=== PATIENT | female | born 1975 | race African-American/Black ===

== ENCOUNTER 2022-03-07 19:25 | Emergency (ER) | payer OTHER, SELFPAY ==
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
[2022-03-07 19:33] VITALS: BP 137/66; PULSE 74; RESP 17; TEMP 36.4; O2SAT 95; BMI 29.2
[2022-03-07 19:38] VITALS: BP 144/100; PULSE 91; O2SAT 99
[2022-03-07 19:40] VITALS: BP 137/66; PULSE 74; RESP 17; TEMP 36.4; O2SAT 98
[2022-03-07] MEDS: Ibuprofen 600 MG TABLET PO (21:22)
[2022-03-07] MEDS: HYDROcodone Bit/Acetam 5/325 TABLET 1 TAB PO (21:22)
== END 2022-03-07 22:36 | disposition home or self-care (01) ==
PROVIDERS: Emergency Provider Emergency Medicine Emergency Medical Services
DX: S16.1XXA Strain of muscle, fascia and tendon at neck level, initial encounter (principal); S43.402A Unspecified sprain of left shoulder joint, initial encounter; R51.9 Headache, unspecified; V89.2XXA Person injured in unspecified motor-vehicle accident, traffic, initial encounter; Y93.9 Activity, unspecified; Y92.410 Unspecified street and highway as the place of occurrence of the external cause; Y99.9 Unspecified external cause status
CPT/HCPCS: 70450; 72125; 73030; 99284